=== PATIENT | female | born 1985 | race Asian ===

== ENCOUNTER 2025-05-28 06:04 | Day surgery (SDC) | payer BC ==
[2025-05-26 12:05] VITALS: BMI 25.8
[2025-05-28] MEDS ORDERED: LIDOCAINE HCL/PF 2% SDV 5ML VIAL ONE (09:29)
[2025-05-28] MEDS ORDERED: PROPOFOL 20 ML ONE (09:29)
[2025-05-28] MEDS ORDERED: KETAMINE HCL 200 MG/20 ML VIAL ONE (09:29)
[2025-05-28] MEDS ORDERED: MIDAZOLAM HCL 2 MG/2 ML SINGLE DOSE VIAL ONE (09:29)
[2025-05-28] MEDS ORDERED: ONDANSETRON 4 MG/2 ML VIAL ONE (09:34)
[2025-05-28] MEDS ORDERED: GLYCOPYRROLATE 0.2 MG/1 ML VIAL ONE (09:34)
[2025-05-28] MEDS ORDERED: DEXAMETHASONE SOD PHOSPHATE 4 MG/1 ML VIAL ONE (09:34)
[2025-05-28] MEDS ORDERED: LIDOCAINE 1%/EPI 1:100000 (20 ML MULTI DOSE VIAL) ONE (10:37)
[2025-05-28] MEDS ORDERED: DEXMEDETOMIDINE HCL 200 MCG/2 ML IVPB ONE (10:39)
[2025-05-28] MEDS ORDERED: ACETAMINOPHEN INJECTION 100 ML ONE (10:39)
[2025-05-28] MEDS: LACTATED RINGERS SOLUTION 1,000 ML IV SCH (12:19)
[2025-05-28 14:43] VITALS: BP 120/59; PULSE 60; RESP 20; TEMP 97.1
== END 2025-05-28 14:30 | disposition home or self-care (01) ==
LOC: JASU-SURG 06:04
PROVIDERS: ATTEND Surgery
PROC: 0JB70ZZ Excision of Back Subcutaneous Tissue and Fascia, Open Approach (ICD-10-PCS; principal; 2025-05-28 11:21)
DX: L72.0 Epidermal cyst (principal)
CPT/HCPCS: 88304-TC; 94760